=== PATIENT | female | born 1950 | race Caucasian/White ===

== ENCOUNTER 2020-09-26 10:17 | Outpatient (NON) | payer MEDICARE, SELFPAY ==
[2020-09-27 06:46] LABS: SARS-CoV-2 RNA PCR Negative
== END 2020-09-26 10:18 ==
LOC: ANHCOVIDDT 10:19
PROVIDERS: PCP Family Medicine; Visit Provider Family Medicine
DX: Z20.828 Contact with and (suspected) exposure to other viral communicable diseases (principal)
CPT/HCPCS: 87635; C9803; U0003

== ENCOUNTER 2021-01-16 13:31 | Outpatient (CLI) | payer MEDICARE, SELFPAY ==
--- NOTE | ~2021-01-16 | CT_ITS ---
EXAMINATION: CT lung screening DATE: 01/16/2021 14:01 INDICATION: Smoker. History of tobacco dependence. TECHNIQUE: Computed tomography (CT) of the chest was performed without intravenous contrast. The dose -length product was 78.14 mGy-cm. Automated exposure control and iterative reconstruction technique w ere employed. COMPARISON: None FINDINGS: Heart size is normal. Precarinal lymph node measures 1 cm, image 44. Additional nonenlarged mediastinal lymph nodes are present, likely reactive. There is atherosclerosis. No significant pleur al or pericardial effusion. The upper abdomen is unremarkable. Moderate emphysema. There is apical pl eural thickening/scarring. There is a pleural-based subsolid 5 mm right lower lobe nodule, image 95. No endobronchial lesions. There are small 1-2 mm subpleural nodules in the left upper lobe, best seen on coronal reconstruction images. No focal airspace consolidation. No pneumothorax. No acute osseous abnormality. IMPRESSION: 1. Lung-RADS category 2: Benign appearance or behavior. Continue annual screening with noncontrast lo w-dose chest CT in 12 months. Reviewed, dictated and finalized at location A. [employer]ISER IMPRESSION: 1. Lung-RADS category 2: Benign appearance or behavior. Continue annual screeni ng with noncontrast low-dose chest CT in 12 months.
== END 2021-01-16 13:32 | disposition home or self-care (01) ==
PROVIDERS: PCP Family Medicine; Visit Provider Family Medicine
DX: Z12.2 Encounter for screening for malignant neoplasm of respiratory organs (principal); Z87.891 Personal history of nicotine dependence
CPT/HCPCS: 71271

== ENCOUNTER 2021-03-02 09:03 | Outpatient (CLI) | payer MEDICARE, SELFPAY ==
--- NOTE | 2021-03-02 16:03 | WPDPFTINT ---
PFT Procedure Performed PFT Procedure Performed Spirometry with Pre/Post Bronchodilator Plethysmography (Lung Vol) Diffusing Cap (DLCO) Flow Vol Loop PFT Interpretation This is a pulmonary function test with pre and post-bronchodilator spirometry, plethysmography and diffusing capacity. The test was performed and results interpreted in accordance with the 2019 and 2005 ATS/ERS Task Force guidelines respectively using the Global Lung Function Initiative-2012 reference equations. Patient demonstrated good effort and cooperation. Reproducibility criteria were met. The quality of the pre bronchodilator spirometry maneuver was Grade A and post bronchodilator spirometry maneuver was Grade A. Findings: Spirometry: There is decreased maximal expiratory airflow at low lung volumes with concave expiratory flow tracing. The contour the inspiratory flow tracing is normal. The pre bronchodilator FVC is 3.62 L, 121% predicted. The pre bronchodilator FEV1 is 2.27 L, 98% predicted. The FEV1: FVC ratio is 63%. The post bronchodilator FVC is 3.58 L, representing a 1% decrease. The post bronchodilator FEV1 is 2.24 L, representing a 1% decrease. Plethysmography: The total lung capacity is 5.23 L, 97% predicted. The functional residual capacity is 2.47 L, 80% predicted. The residual volume is 1.61 L, 69% predicted. Diffusing capacity: The absolute diffusion capacity is 12.8, 61% predicted. The diffusing capacity corrected for alveolar volume is 2.85, 68% predicted. Impression: There is a mild obstructive abnormality with a normal FEV1 and wihtout significant improvement after inhaling a single dose of albuterol. T The lung volumes are normal. The absolute diffusing capacity is mildly decreased and normalizes when corrected for alveolar volume. There are no prior studies for comparison
== END 2021-03-02 09:04 | disposition home or self-care (01) ==
PROVIDERS: PCP Family Medicine; Visit Provider Family Medicine
DX: J44.9 Chronic obstructive pulmonary disease, unspecified (principal); R94.2 Abnormal results of pulmonary function studies
CPT/HCPCS: 94060; 94726; 94729

== ENCOUNTER 2021-05-02 10:48 | Outpatient (CLI) | payer MEDICARE, SELFPAY ==
--- NOTE | ~2021-05-02 | MR_ITS ---
EXAMINATION: MR cervical spine wo con DATE: 05/02/2021 12:08 INDICATION: Cervical radiculopathy. TECHNIQUE: Magnetic resonance imaging (MRI) of the cervical spine was performed without intravenous c ontrast. Sequences included sagittal T2-weighted FSE, sagittal STIR FSE, sagittal T1-weighted FSE, ax ial MERGE, and axial T2-weighted FSE. COMPARISON: Cervical spine MRI 09/12/2019 FINDINGS: Bone alignment is normal. Vertebral body heights are normal. There is mildly decreased disc height at C3-C4 and severely decreased disc height at C5-C6 and C6-C7. The spinal cord signal intens ity is normal. The following disc levels are specifically discussed: C2-C3: There is a central protrusion. There is no uncovertebral joint osteoarthritis. There is no fac et joint osteoarthritis. There is no neural foraminal stenosis. There is no central canal stenosis. C3-C4: The disc is bulging. There is mild bilateral uncovertebral joint osteoarthritis. There is mode rate bilateral facet joint osteoarthritis. There is mild bilateral neural foraminal stenosis. There i s mild central canal stenosis. C4-C5: The disc is bulging. There is mild left uncovertebral joint osteoarthritis. There is mild righ t and severe left facet joint osteoarthritis. There is mild left neural foraminal stenosis. There is no central canal stenosis. C5-C6: The disc is bulging. There is severe bilateral uncovertebral joint osteoarthritis. There is no facet joint osteoarthritis. There is moderate right and mild left neural foraminal stenosis. There i s mild central canal stenosis. C6-C7: The disc is bulging. There is severe bilateral uncovertebral joint osteoarthritis. There is mi ld bilateral facet joint osteoarthritis. There is mild bilateral neural foraminal stenosis. There is mild central canal stenosis. C7-T1: There is a central protrusion. There is no uncovertebral joint osteoarthritis. There is severe bilateral facet joint osteoarthritis. There is mild bilateral neural foraminal stenosis. There is mi ld central canal stenosis. IMPRESSION: 1. Severe cervical spondylosis, stable from 09/12/2019. Reviewed, dictated and finalized at location A.
== END 2021-05-02 10:49 | disposition home or self-care (01) ==
PROVIDERS: PCP Family Medicine; Visit Provider Anesthesiology
DX: M47.23 Other spondylosis with radiculopathy, cervicothoracic region (principal); M48.03 Spinal stenosis, cervicothoracic region
CPT/HCPCS: 72141

== ENCOUNTER 2021-07-10 08:39 | Outpatient (CLI) | payer MEDICARE, SELFPAY ==
[2021-07-10 09:14] LABS: Hematocrit 37.8 % (37.0-47.0); Hemoglobin 12.4 g/dL (12.0-15.0); Mean Corpuscular HGB Conc 32.8 g/dl (32-36); Mean Corpuscular Hemoglobin 31.1 pg (26-34); Mean Corpuscular Volume 94.7 fl (80-100); Mean Platelet Volume 8.7 fl (7.4-10.4); Platelet Count Result 293 k/mm3 (150-375); Red Blood Count 3.99 M/mm3 (4.2-5.4); Red Cell Distribution Width 13.1 % (11.5-14.5); White Blood Count 8.7 K/mm3 (4.5-10.0)
[2021-07-10 09:28] LABS: Add Urine Microscopic? YES; Appearance Urine Clear (Clear); Bilirubin Urine Negative (Negative); Blood Urine Negative (Negative); Color Urine Yellow (Yellow); Glucose Urine UA Negative (Negative); Ketones Urine Negative (Negative); Leukocyte Esterase Ur 3+ LEU/UL (NEGATIVE); Mucus Urine Rare /lpf; Nitrate Urine Negative (Negative); Protein Urine Negative (Negative); Specific Grav Ur 1.014 (1.001-1.035); Squamous Epithelial Cell Urine Few /hpf (Few); Transitional Epi Cells Urine Rare /hpf (None Seen); Urobilinogen Urine Negative mg/dL (<2.0); WBC Urine 16-20 /hpf (0-3)
[2021-07-10 09:36] LABS: Alanine Aminotransferase 14 U/L (4-35); Albumin Level 4.1 g/dL (3.5-5.1); Alkaline Phosphatase 67 U/L (38-126); Anion Gap 6 mmol/L (8-16); Aspartate Amino Transferase 22 U/L (14-36); Bilirubin,Total 0.2 mg/dL (0.2-1.3); Blood Urea Nitrogen 14 mg/dL (7-17); Calcium 9.1 mg/dL (8.4-10.2); Carbon Dioxide 28 mmol/L (22-30); Chloride 105 mmol/L (98-107); Cholesterol 207 mg/dL (0-200); Estimated Glomerular Filt Rate > 60; Glucose 105 mg/dL (65-110); HDL Direct 86 mg/dL; Potassium 3.9 mmol/L (3.4-5.0); Sodium 139 mmol/L (137-145); Triglycerides 86 mg/dL (<150)
[2021-07-10 09:47] LABS: LDL Cholesterol Direct 82 mg/dL
== END 2021-07-10 08:40 | disposition home or self-care (01) ==
PROVIDERS: PCP Family Medicine; Visit Provider Family Medicine
DX: E78.5 Hyperlipidemia, unspecified (principal); I10 Essential (primary) hypertension
CPT/HCPCS: 36415; 80053; 80061; 81001; 84443; 85027

== ENCOUNTER → 2021-07-24 01:47 | Outpatient (CLI) | payer MEDICARE, SELFPAY ==
[2021-07-24 19:38] LABS: SARS-CoV-2 RNA PCR Negative
== END ==
PROVIDERS: PCP Family Medicine; Visit Provider Family Medicine
DX: Z20.822 Contact with and (suspected) exposure to COVID-19 (principal)
CPT/HCPCS: C9803; U0003; U0005

== ENCOUNTER 2021-08-13 16:23 | Emergency (ER) | payer MEDICARE, SELFPAY ==
--- NOTE | ~2021-08-13 | XR_ITS ---
EXAMINATION: XR knee RT min 4V EXAM DATE: 08/13/2021 17:41 INDICATION: Right knee pain, swelling, recently had fluid removed. TECHNIQUE: Right knee frontal, crosstable lateral, orthogonal oblique projections for interpretation . There is no prior study for comparison. FINDINGS: No evidence osteochondral defect or joint body in the right knee joint. There are no acut e fractures or dislocations identified. There is no subcutaneous gas. There is small joint effusion . There are no radiopaque foreign bodies. IMPRESSION: Small right knee joint effusion. Reviewed, dictated and finalized at location G.
--- NOTE | ~2021-08-13 | US_ITS ---
EXAMINATION: US venous doppler LE RT DATE: 08/13/2021 17:30 INDICATION: Right lower limb pain. TECHNIQUE: Grayscale ultrasound images without and with compression and Doppler ultrasound images of the right lower extremity veins were obtained. COMPARISON: None. FINDINGS: The visualized portions of right common femoral vein, profunda (deep) femoral vein, femoral vein, pop liteal vein, peroneal veins, posterior tibial veins, and greater saphenous vein outflow are patent. IMPRESSION: 1. No deep venous thrombosis. Reviewed, dictated and finalized at location A.
[2021-08-13 16:35] VITALS: BP 175/79; PULSE 75; RESP 18; TEMP 36.7; O2SAT 97
--- NOTE | 2021-08-13 16:58 | ED.EXTPRO ---
HPI - Extremity Problem General Chief complaint: Extremity Problem,Nontraumatic Stated complaint: knee injury Time Seen by Provider: 08/13/21 16:49 Source: patient Mode of arrival: ambulatory Limitations: no limitations History of Present Illness HPI Narrative: This is a 71-year-old female that presents to the emergency department for right lower extremity swelling since yesterday. Reports 2 days ago she had an a steroid injection in the right knee with Dr. Steve. Reports yesterday she noted that her swelling came back in the knee. Also reports swelling going down into the calf and ankle. Denies fever, decreased range of motion, erythema, or warmth. Related Data Home Medications Medication Instructions Recorded Confirmed tizanidine 2 mg tablet 2 mg PO TID PRN 12/04/19 08/11/21 pregabalin 25 mg capsule 25 mg PO BID 07/14/21 08/11/21 methylprednisolone 4 mg tablets in See Rx Instructions PO .COMPLEX ea 08/11/21 08/11/21 a dose pack Allergies Allergy/AdvReac Type Severity Reaction Status Date / Time ciprofloxacin [From Cipro] Allergy Mild rash Verified 08/13/21 16:38 Review of Systems Review of Systems: CONSTITUTIONAL: Denies fever SKIN: Denies rash MUSCULOSKELETAL: Reports joint pain, and myalgia. NEUROLOGIC: Denies numbness All systems reviewed & are unremarkable except as noted in HPI and below PMFSH Past Medical History Medical History Anxiety COPD (chronic obstructive pulmonary disease) Depression GERD (gastroesophageal reflux disease) HLD (hyperlipidemia) HTN (hypertension), benign Insomnia Smoking Spinal stenosis Surgical History Surgical History History of sinus surgery twice Family History Family History Father Cancer of unknown origin Heart disease Hypertension Mother Hypertension Alzheimer's dementia Social History Social History Smoking packs per day: 0.5 Smoking cigarettes per day: 10.0 Years smoked: 50 Smoking pack-years: 25.00 Smoking status: Current every day smoker Tobacco type: cigarettes Second hand tobacco smoke exposure: No Alcohol intake: current Alcohol use details: socially Substance use: never Substance use type: does not use Gender identity (if verbalized by the patient): Female Exam Narrative: GENERAL: Well-appearing, well-nourished, and in no acute distress. HEAD: Normocephalic, atraumatic. EYES: EOMI. CHEST: Airway patent HEART: Regular rate EXTREMITIES: Normal range of motion. No erythema or warmth. Mild edema about the right knee anteriorly. Mild edema of the right calf and ankle. Normal DP pulses. Normal sensation SKIN: Warm, dry, no rash. NEURO: No focal deficits. Alert and oriented x3. PSYCH: Normal mood and affect Course Vital Signs Vital signs: Vital Signs Temperature 98.0 F 08/13/21 16:35 Pulse Rate 75 08/13/21 16:35 Respiratory Rate 18 08/13/21 16:35 Blood Pressure 175/79 H 08/13/21 16:35 Pulse Oximetry 97 08/13/21 16:35 Temperature 98.0 F 08/13/21 16:35 Pulse Rate 75 08/13/21 16:35 Respiratory Rate 18 08/13/21 16:35 Blood Pressure 175/79 H 08/13/21 16:35 Pulse Oximetry 97 08/13/21 16:35 MDM - Extremity (Nontraumatic) MDM Narrative Medical decision making narrative: Patient presents to the emergency department for right lower extremity edema and pain. Recently had a joint injection in the right knee [address] Steve. She is afebrile and nontoxic-appearing. No erythema or warmth of the knee. Normal range of motion in the knee. Mild swelling noted about the right calf and ankle. Right lower extremity venous Doppler is without evidence of DVT. Right knee x-ray shows a small joint effusion. No concerning changes on laboratory evaluation. Patient wa
[2021-08-13 17:20] LABS: Basophils Percent Auto 0.1 % (0.2-1.2); Hematocrit 34.5 % (37.0-47.0); Hemoglobin 11.5 g/dL (12.0-15.0); Immature Granulocyte Absolute 0.08 K/mm3 (0.00-0.031); Immature Granulocyte Percent A 0.7 % (0-0.5); Lymphocytes Absolute Auto 1.48 K/mm3 (0.9-3.2); Lymphocytes Percent Auto 12.7 % (18.3-44.2); Mean Corpuscular HGB Conc 33.3 g/dl (32-36); Mean Corpuscular Hemoglobin 31.4 pg (26-34); Mean Corpuscular Volume 94.3 fl (80-100); Mean Platelet Volume 8.6 fl (7.4-10.4); Monocytes Absolute Auto 0.7 K/mm3 (0.1-0.6); Neutrophils Absolute Auto 9.4 K/mm3 (1.3-6.7); Neutrophils Percent Auto 80.5 % (45.5-73.1); Platelet Count Result 243 k/mm3 (150-375); Red Blood Count 3.66 M/mm3 (4.2-5.4); Red Cell Distribution Width 13.8 % (11.5-14.5); White Blood Count 11.6 K/mm3 (4.5-10.0)
[2021-08-13 17:30] LABS: INR 0.8; Prothrombin Time 11.4 Seconds (11.1-14.7)
[2021-08-13 17:31] LABS: Partial Thromboplastin Time 23.4 SECONDS (22.3-36.8)
[2021-08-13 17:48] LABS: Anion Gap 5 mmol/L (8-16); Blood Urea Nitrogen 21 mg/dL (7-17); CRP < 0.5 mg/dL (<1.0); Calcium 8.9 mg/dL (8.4-10.2); Carbon Dioxide 24 mmol/L (22-30); Chloride 104 mmol/L (98-107); Estimated CRCL calculation 55 ml/min; Estimated Glomerular Filt Rate > 60; Glucose 104 mg/dL (65-110); Potassium 4.2 mmol/L (3.4-5.0); Sodium 133 mmol/L (137-145)
[2021-08-13 17:52] LABS: Erythrocyte Sedimentation Rate 33 mm/hr (0-20)
== END 2021-08-13 22:24 | disposition home or self-care (01) ==
PROVIDERS: Physician Assistant; Emergency Provider Emergency Medicine; PCP Family Medicine
DX: R60.0 Localized edema (principal); J44.9 Chronic obstructive pulmonary disease, unspecified; E78.5 Hyperlipidemia, unspecified; I10 Essential (primary) hypertension; K21.9 Gastro-esophageal reflux disease without esophagitis; F41.9 Anxiety disorder, unspecified; F32.9 Major depressive disorder, single episode, unspecified; F17.210 Nicotine dependence, cigarettes, uncomplicated
CPT/HCPCS: 36415; 73564; 80048; 85025; 85610; 85652; 85730; 86140; 93971; 99284

== ENCOUNTER 2021-08-19 06:40 | Outpatient (CLI) | payer MEDICARE, SELFPAY ==
--- NOTE | ~2021-08-19 | MR_ITS ---
EXAMINATION: MR knee RT wo con DATE: 08/19/2021 07:27 INDICATION: Right knee pain and swelling TECHNIQUE: Magnetic resonance imaging (MRI) of the right knee was performed without intravenous contr ast. Sequences included coronal PD-weighted FSE, coronal PD-weighted FS FSE, sagittal T2-weighted FS E, sagittal PD-weighted FS FSE and axial PD weighted fat saturated FSE. COMPARISON: Right knee radiographs dated 08/13/2021 FINDINGS: Medial compartment: Longitudinal horizontal tear of the body and posterior horn of the medial meniscus. Partial-thickness cartilage loss along the central weightbearing medial femoral condyle with smooth chondral surface. Deep chondral fissuring along the medial margin of the central to posterior weightbearing lateral fem oral condyle with small region of underlying cortical irregularity with mild subarticular edema. Lateral compartment: Longitudinal horizontal tear extending to the intra-articular surface of the posterior horn . Crosses the free edge of the body and extending to the superior to the surface at the junction of the anteri or horn and body. Partial-thickness cartilage loss with deep fissuring and mild underlying subarticul ar cystic change along the posterior medial aspect of the lateral tibial plateau. Partial thickness c artilage loss with smooth chondral surface at the central weightbearing lateral femoral condyle. Patellofemoral compartment: Deep chondral ulceration with mild subarticular cystic changes at the cephalad have of the patellar a pical ridge and medial patellar facet. Shallow chondral fissuring at the lateral aspect of the latera l facet. Deep chondral fissuring with minimal subarticular edema at the inferior aspect of the medial trochlea. Ligaments and tendons: Anterior cruciate ligament is normal. There is increased signal extending proximally to distally sea g the central aspect of the posterior cruciate ligament consistent with at least partial tear. No adj acent soft tissue edema in this is likely chronic. The fibular collateral ligament complex is normal. There is thickening and mild increased signal of the proximal medial collateral ligament. There is m ild edema along both the deep and superficial margin of the medial collateral ligament. Findings coul d represent either an acute low to moderate grade sprain or scarring related to chronic sprain with c oincidental reactive edema related to the underlying meniscal tear. Small enthesophytes at the patell ar insertion of the otherwise normal distal quadriceps tendon. Mild proximal patellar tendinopathy. T he visualized medial and lateral hamstring tendons as well as the iliotibial band are normal. Fluid: Small right knee joint effusion at the suprapatellar pouch. No loose osteochondral bodies identified. Osseous/other: Bone alignment is normal. Small low signal intensity bone island at the medial femoral condyle. Anitha l marrow signal separate previous noted mild degenerative subarticular changes. No fracture or pathol ogic marrow replacing process. IMPRESSION: 1. Medial and lateral meniscal tears. 2. Mild tricompartmental osteoarthritis with regions of high-grade chondromalacia in all 3 compartmen ts. 3. Likely chronic partial tear of the posterior cruciate ligament and age-indeterminate low to modera te grade sprain of the medial collateral ligament. 4. Likely reactive small right knee joint effusion. 5. Mild proximal patellar tendinopathy and small enthesophytes at the patellar insertion of the other aden normal quadriceps tendon. Reviewed, dictated and finalized at location A. IMPRESSION: 1. Medial and lateral meniscal tears. 2. Mild tricompartmental osteoarthritis with regions of high-grade chondromalac ia in all 3 compartments
== END 2021-08-19 06:41 | disposition home or self-care (01) ==
LOC: ANHIMG 06:41
PROVIDERS: PCP Family Medicine; Visit Provider Orthopaedic Surgery
DX: S83.281A Other tear of lateral meniscus, current injury, right knee, initial encounter (principal); S83.241A Other tear of medial meniscus, current injury, right knee, initial encounter; S83.501A Sprain of unspecified cruciate ligament of right knee, initial encounter
CPT/HCPCS: 73721

== ENCOUNTER 2022-03-07 08:25 | Outpatient (CLI) | payer MEDICARE, SELFPAY ==
--- NOTE | ~2022-03-07 | XR_ITS ---
EXAMINATION: XR lumbar spine 6V w bending DATE: 03/07/2022 09:10 INDICATION: Lumbar radiculopathy TECHNIQUE: Anteroposterior, lateral in neutral, flexion and extension, and bilateral oblique views of the lumbar spine, and cone-down lateral view of the lumbosacral junction were obtained. COMPARISON: 09/12/2019 FINDINGS: There is stable grade 1/2 anterolisthesis of L4 on L5. Again noted are approximately 2 mm o f additional anterolisthesis with flexion and 2 mm of reduction and anterolisthesis with extension. T here is unchanged severe loss of intervertebral disc space height at L4-5 and moderate loss of interv ertebral disc space height at L5-S1. The vertebral body heights are normal. There is no fracture. The re is moderate facet osteoarthritis of the lower lumbar spine. Calcified atherosclerosis is noted. IMPRESSION: 1. Unchanged grade 1/2 anterolisthesis of L4 on L5 with mild laxity in flexion and extension. Stable moderate lower lumbar spondylosis. Reviewed, dictated and finalized at location A.
--- NOTE | ~2022-03-07 | MR_ITS ---
EXAMINATION: MR lumbar spine wo con DATE: 03/07/2022 09:28 INDICATION: Lumbar radiculopathy. Lumbar spinal stenosis. TECHNIQUE: Magnetic resonance imaging (MRI) of the lumbar spine was performed without intravenous con trast. Sequences included sagittal T2-weighted FSE, sagittal T2-weighted FS FSE, sagittal T1-weighted FSE, and axial T2-weighted FSE. COMPARISON: Lumbar spine radiographs 03/07/2022 FINDINGS: There is 4 degrees levocurvature of lumbar spine. There is 6 mm anterolisthesis of L4 on L5 . Vertebral body heights are normal. There is severely decreased disc height at L4-L5 with endplate r emodeling. There is mildly decreased disc height at L3-L4 and L5-S1. The distal spinal cord signal in tensity is normal. The conus medullaris is at T12-L1. The following disc levels are specifically disc ussed: L1-L2: The disc does not extend beyond the endplate margin. There is mild bilateral facet joint osteo arthritis. There is no neural foraminal stenosis. There is no central canal stenosis. L2-L3: The disc is mildly bulging. There is moderate bilateral facet joint osteoarthritis. There is m ild bilateral neural foraminal stenosis. There is no central canal stenosis. L3-L4: The disc is bulging. There is mild bilateral facet joint osteoarthritis. There is mild right a nd moderate left neural foraminal stenosis. There is mild central canal stenosis. L4-L5: The disc is bulging and has an annular fissure. There is severe bilateral facet joint osteoart hritis. There is moderate bilateral neural foraminal stenosis. There is severe central canal stenosis . L5-S1: The disc is bulging and has an annular fissure. There is moderate bilateral facet joint osteoa rthritis. There is mild right and moderate left neural foraminal stenosis. There is mild central ximena l stenosis. IMPRESSION: 1. Severe lumbar spondylosis. Reviewed, dictated and finalized at location B.
== END 2022-03-07 08:26 | disposition home or self-care (01) ==
PROVIDERS: PCP Family Medicine; Visit Provider Anesthesiology
DX: M54.16 Radiculopathy, lumbar region (principal); M48.062 Spinal stenosis, lumbar region with neurogenic claudication; M43.06 Spondylolysis, lumbar region
CPT/HCPCS: 72114; 72148

== ENCOUNTER 2022-03-10 14:33 | Emergency (ER) | payer MEDICARE, SELFPAY ==
--- NOTE | ~2022-03-10 | CT_ITS ---
EXAMINATION: CT brain wo con DATE: 03/10/2022 18:21 INDICATION: syncope TECHNIQUE: Computed tomography (CT) of the head was performed without intravenous contrast. The mA wa s adjusted according to patient size. Iterative reconstruction technique was employed. The dose-lengt h product was 529.67 mGy-cm. COMPARISON: None FINDINGS: No acute intracranial hemorrhage or extra-axial fluid collection. No hydrocephalus, mass, or herniation. No acute ischemic infarct. Unremarkable dural venous sinus attenuation. No acute osseous abnormality. The aerated spaces are clear. Mild atrophy and chronic white matter change. Atherosclerotic intracranial calcification. Old left ba morris ganglia lacune. IMPRESSION: No acute intracranial process. Reviewed, dictated and finalized at location K.
--- NOTE | 2022-03-10 14:47 | ECG_ITS ---
Measurements Intervals [place] Rate: 57 P: 55 MI: 157 QRS: 11 QRSD: 89 T: 46 QT: 440 QTc: 431 Interpretive Statements SINUS BRADYCARDIA POSSIBLE LEFT ATRIAL ENLARGEMENT VOLTAGE CRITERIA FOR LVH CANNOT RULE OUT SEPTAL INFARCT, AGE INDETERMINATE BASELINE ARTIFACT- I, III, AVL ABNORMAL ECG Electronically Signed On 03-10-2022 15:20:05 CDT by Jeff Gregg D.O.
[2022-03-10 15:00] VITALS: BP 103/60; PULSE 62; RESP 18; TEMP 36.1; O2SAT 95
[2022-03-10 15:22] LABS: Basophils Absolute Auto 0.1 K/mm3 (0.0-0.1); Basophils Percent Auto 0.4 % (0.2-1.2); Eosinophils Percent Auto 0.3 % (0-4.4); Hemoglobin 13.2 g/dL (12.0-15.0); Immature Granulocyte Absolute 0.08 K/mm3 (0.00-0.031); Immature Granulocyte Percent A 0.7 % (0-0.5); Lymphocytes Absolute Auto 4.62 K/mm3 (0.9-3.2); Lymphocytes Percent Auto 40.8 % (18.3-44.2); Mean Corpuscular Hemoglobin 29.8 pg (26-34); Mean Corpuscular Volume 90.3 fl (80-100); Mean Platelet Volume 8.7 fl (7.4-10.4); Monocytes Absolute Auto 0.9 K/mm3 (0.1-0.6); Monocytes Percent Auto 7.5 % (2.6-8.5); Neutrophils Absolute Auto 5.7 K/mm3 (1.3-6.7); Neutrophils Percent Auto 50.3 % (45.5-73.1); Platelet Count Result 303 k/mm3 (150-375); Red Blood Count 4.43 M/mm3 (4.2-5.4); Red Cell Distribution Width 14.3 % (11.5-14.5); White Blood Count 11.3 K/mm3 (4.5-10.0)
[2022-03-10 15:34] LABS: Alanine Aminotransferase 14 U/L (4-35); Albumin Level 4.1 g/dL (3.5-5.1); Alkaline Phosphatase 62 U/L (38-126); Anion Gap 7 mmol/L (8-16); Aspartate Amino Transferase 20 U/L (14-36); Bilirubin,Total 0.3 mg/dL (0.2-1.3); Blood Urea Nitrogen 23 mg/dL (7-17); Calcium 9.1 mg/dL (8.4-10.2); Carbon Dioxide 25 mmol/L (22-30); Chloride 100 mmol/L (98-107); Estimated CRCL calculation 36 ml/min; Estimated Glomerular Filt Rate 49; Glucose 123 mg/dL (65-110); Potassium 3.2 mmol/L (3.4-5.0); Sodium 132 mmol/L (137-145)
[2022-03-10 16:37] VITALS: BP 115/62; PULSE 61; RESP 15; O2SAT 95
[2022-03-10 16:50] VITALS: PULSE 62
[2022-03-10 17:38] VITALS: BP 112/70; PULSE 71; RESP 15; O2SAT 94
[2022-03-10 18:08] LABS: Appearance Urine Clear (Clear); Bilirubin Urine Negative (Negative); Blood Urine Negative (Negative); Color Urine Yellow (Yellow); Glucose Urine UA Negative (Negative); Ketones Urine Trace mg/dL (Negative); Leukocyte Esterase Ur Trace LEU/UL (Negative); Nitrate Urine Negative (Negative); Protein Urine Negative (Negative); Specific Grav Ur 1.015 (1.001-1.035); Urobilinogen Urine 0.2 mg/dL (<2.0); pH Urine 5.5 (5.0-9.0)
--- NOTE | 2022-03-10 18:14 | PC.NURSE ---
Pt to CT scan via stretcher at this time.
[2022-03-10 18:19] LABS: Mucus Urine Rare /lpf; RBC Urine 0-2 /hpf (0-2); Squamous Epithelial Cell Urine Rare /hpf (Few)
[2022-03-10 18:20] LABS: Add Urine Microscopic? YES
[2022-03-10 18:38] LABS: Troponin I < 0.012 ng/mL (0.000-0.034)
[2022-03-10 18:48] LABS: D Dimer 0.39 ug/mL (<0.48)
--- NOTE | 2022-03-10 20:06 | ED.SYNCOPE ---
HPI - Syncope General Chief Complaint: Syncope Stated Complaint: syncope/abd pain Time Seen by Provider: 03/10/22 15:57 Source: patient Mode of arrival: EMS Limitations: no limitations History of Present Illness HPI narrative: 71-year-old here with complaints of having a syncopal episode. Patient states that she was sitting with her friends and playing cards passed out , patient states that she felt extremely dizzy and diaphoretic. she denied any chest pain, shortness of breath or palpitation prior to the event. She denies any headache she states that she cannot remember what happened. No history of seizure disorder or syncopal episodes. MD complaint: loss of consciousness Related Data Home Medications Medication Instructions Recorded Confirmed tizanidine 2 mg tablet 2 mg PO TID PRN 12/04/19 02/01/22 pregabalin 25 mg capsule 25 mg PO BID 07/14/21 02/01/22 Allergies Allergy/AdvReac Type Severity Reaction Status Date / Time ciprofloxacin [From Cipro] Allergy Mild rash Verified 02/01/22 10:55 Review of Systems Review of Systems: All systems reviewed & are unremarkable except as noted in HPI and below Constitutional: Constitutional: Reports no additional constitutional complaints Eyes: Eyes: Reports no additional eye complaints ENT: Reports system reviewed and no additional complaints, except as documented Cardiovascular: Cardiovascular: Reports no additional cardiovascular complaints Respiratory: Respiratory: Reports no additional respiratory complaints Genitourinary: Genitourinary: Reports no additional female genitourinary complaints Musculoskeletal: Musculoskeletal: Reports no additional musculoskeletal complaints Integumentary/Breasts: Skin/Breast: Reports system reviewed and no additional complaints, except as docu Neurologic: Reports dizziness Psychiatric: Psychiatric: Reports no additional psychiatric complaints [facility] Past Medical History Medical History Anxiety COPD (chronic obstructive pulmonary disease) Depression GERD (gastroesophageal reflux disease) HLD (hyperlipidemia) HTN (hypertension), benign Insomnia Smoking Spinal stenosis Tear of medial meniscus of right knee Surgical History Surgical History History of sinus surgery twice Family History Family History Father Cancer of unknown origin Heart disease Hypertension Mother Hypertension Alzheimer's dementia Social History Social History (Updated 02/01/22 @ 10:55 by Kathie Castle Smoking packs per day: 0.5 Smoking cigarettes per day: 10.0 Years smoked: 50 Smoking pack-years: 25.00 Smoking status: Current every day smoker Tobacco type: cigarettes Second hand tobacco smoke exposure: No Alcohol intake: current Alcohol use details: socially Substance use: never Substance use type: does not use Gender identity (if verbalized by the patient): Female Exam Narrative: GENERAL: Well-appearing, well-nourished, and in no acute distress. HEAD: Normocephalic, atraumatic. EYES: PERRLA and EOMI. ENT: Nares clear, no rhinorrhea or epistaxis. Mucous membranes moist. No facial droop NECK: Supple. CHEST: Clear to auscultation. No respiratory distress. HEART: Regular rate and rhythm. No murmur heard. Normal peripheral pulses. ABDOMEN: Soft, nontender, nondistended, normal active bowel sounds. EXTREMITIES: Normal range of motion. No edema. SKIN: Warm, dry, no rash. NEURO: No focal deficits. Alert and oriented x3. PSYCH: Normal mood and affect. Course Course Emergency Course: Patient remained asymptomatic here denied any pain informed her about her lab work, CT and EKG findings. I discussed with Dr. Reese recommended her to call the office tomorrow for Holter monitor. Patient's daughter is at bedside understood the instructions. Vital
[2022-03-10 20:23] VITALS: BP 117/65; PULSE 70; RESP 18; O2SAT 97
== END 2022-03-10 20:24 | disposition home or self-care (01) ==
PROVIDERS: Emergency Medicine; Emergency Provider Family Medicine; PCP Family Medicine
DX: R55 Syncope and collapse (principal); K21.9 Gastro-esophageal reflux disease without esophagitis; E78.5 Hyperlipidemia, unspecified; I10 Essential (primary) hypertension; J44.9 Chronic obstructive pulmonary disease, unspecified; F17.210 Nicotine dependence, cigarettes, uncomplicated; F41.9 Anxiety disorder, unspecified; F32.A Depression, unspecified
CPT/HCPCS: 36415; 70450; 80053; 81001; 84484; 85025; 85380; 93005; 99284

== ENCOUNTER 2023-02-18 11:41 | Emergency (ER) | payer MEDICARE, SELFPAY ==
[2023-02-18 11:52] VITALS: BP 126/85; PULSE 77; RESP 18; TEMP 36.1; O2SAT 99
--- NOTE | 2023-02-18 12:19 | ED.URI ---
HPI - URI/Sore Throat General Chief Complaint: Upper Respiratory Infection Stated Complaint: uri Time Seen by Provider: 02/18/23 11:55 Source: patient Mode of arrival: ambulatory Limitations: no limitations History of Present Illness HPI Narrative: Patient presents today with a 3 day history of nasal congestion and pressure, postnasal drip, right ear pain and pressure, headache. Denies cough, fever, shortness of breath, sick contacts. History of COPD and seasonal allergies. She has been taking Mucinex DM without much relief. Related Data Home Medications Medication Instructions Recorded Confirmed tizanidine 2 mg tablet 2 mg PO TID 12/04/19 02/18/23 pregabalin 25 mg capsule (Lyrica) 25 mg PO BID 07/14/21 02/18/23 amlodipine 5 mg tablet 5 mg PO DAILY 09/07/22 02/18/23 Allergies Allergy/AdvReac Type Severity Reaction Status Date / Time cefuroxime [From Ceftin] Allergy Mild Rash Verified 02/18/23 11:46 ciprofloxacin [From Cipro] Allergy Mild rash Verified 02/18/23 11:46 Review of Systems Review of Systems: CONSTITUTIONAL: Denies body aches, fever, chills, or sweats. EYES: Denies visual changes, redness, or discharge. ENT: Denies rhinorrhea, sore throat. + sinus congestion, postnasal drip, right ear pain CARDIOVASCULAR: Denies chest pain, palpitations, or edema. RESPIRATORY: Denies cough or dyspnea. GASTROINTESTINAL: Denies abdominal pain, nausea, vomiting, or diarrhea. GENITOURINARY: Denies dysuria or hematuria. SKIN: Denies rash, itching, or wounds. MUSCULOSKELETAL: Denies back pain, joint pain, or myalgia. NEUROLOGIC: Denies numbness, tingling, or weakness.+ headache PSYCH: Denies depression or anxiety. 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 Depression Fibromyalgia GERD (gastroesophageal reflux disease) HLD (hyperlipidemia) HTN (hypertension), benign Insomnia Osteoarthritis Smoking Spinal stenosis Tear of medial meniscus of right knee Vitamin B12 deficiency Surgical History Surgical History History of breast biopsy (~2002) right breast biopsy--benign History of dilation and curettage 08/24/12 hscope d&c--PMB--atrophic endometrium, stenotic cervix 1970 d&c--irregular bleeding History of nasal septoplasty (~1969) History of sinus surgery (03/07/09) Family History Family History Father Heart disease Hypertension Lung cancer Mother Hypertension Alzheimer's dementia Malignant neoplasm of uterus Sibling Breast cancer daughter Social History Social History Smoking packs per day: 0.5 Smoking cigarettes per day: 10.0 Years smoked: 50 Smoking pack-years: 25.00 Smoking status: Current every day smoker Tobacco type: cigarettes Second hand tobacco smoke exposure: No Alcohol intake: current Alcohol use details: socially Substance use: never Substance use type: does not use Living arrangements: with family Occupation/Education: retired Gender identity (if verbalized by the patient): Female Comments At time of signature, I have reviewed and agree with nursing past medical, surgical, social and family history unless otherwise noted. Please see nursing chart for further information. There is no relevant family history pertinent to the presenting complaint Exam Narrative: GENERAL: Well-appearing, well-nourished, and in no acute distress. HEAD: Normocephalic, atraumatic. EYES: EOMI. No redness or drainage. Conjunctivae normal. ENT: Mucous membranes pink and moist. Nares mildly congested. No rhinorrhea. TMs normal bilaterally. Mild righ
== END 2023-02-18 12:28 | disposition home or self-care (01) ==
PROVIDERS: Emergency Provider Nurse Practitioner; PCP Internal Medicine
DX: J30.2 Other seasonal allergic rhinitis (principal); H65.111 Acute and subacute allergic otitis media (mucoid) (sanguinous) (serous), right ear; F17.210 Nicotine dependence, cigarettes, uncomplicated; J44.9 Chronic obstructive pulmonary disease, unspecified; M79.7 Fibromyalgia; K21.9 Gastro-esophageal reflux disease without esophagitis; E78.5 Hyperlipidemia, unspecified; I10 Essential (primary) hypertension; M48.00 Spinal stenosis, site unspecified; M17.0 Bilateral primary osteoarthritis of knee; F41.9 Anxiety disorder, unspecified; F32.A Depression, unspecified
CPT/HCPCS: 99213; G0463

== ENCOUNTER 2025-01-21 11:24 | Emergency (ER) | payer MEDICARE, SELFPAY ==
--- NOTE | 2025-01-21 11:27 | ED_ITS ---
HPI - URI/Sore Throat General Chief Complaint: Upper Respiratory Infection Stated Complaint: cough,sinus issue Time Seen by Provider: 01/21/25 11:26 Source: patient Mode of arrival: ambulatory Limitations: no limitations History of Present Illness HPI Narrative: Patient is a 74-year-old female who presents with 1 week of cough, congestion, sinus pressure that is not improving. Denies any fever, chills, nausea, v omiting, diarrhea, shortness of breath. Patient is active smoker. Has tried [id number] medicine with no relief. Related Data Home Medications ?Medication ?Instructions ?Recorded ?Confirmed ?Last Taken ?Type tizanidine 2 mg tablet 2 mg PO TID 12/04/19 02/18/23 Unknown History pregabalin 25 mg capsule (Lyrica) 25 mg PO BID 07/14/21 02/18/23 Unknown History amlodipine 5 mg tablet 5 mg PO DAILY 09/07/22 02/18/23 Unknown History Allergies Allergy/AdvReac Type Severity Reaction Status Date / Time cefuroxime (From Ceftin) Allergy Mild Rash Verified 02/18/23 11:46 ciprofloxacin (From Cipro) Allergy Mild rash Verified 02/18/23 11:46 Review of Systems Review of Systems: All systems reviewed & are unremarkable except as noted in HPI and below Constitutional: Constitutional: Denies chills, Denies fatigue, Denies fever(s), Denies headache(s), Denies malaise and Denies weakness Eyes: Eyes: Denies blurry vision, Denies itchy eyes and Denies loss of vision ENT: Denies otalgia, Denies headache(s), Reports nasal congestion, Denies sinus pain and Denies sore throat Cardiovascular: Cardiovascular: Denies chest pain, Denies irregular heart rhythm and Denies dyspnea Respiratory: Respiratory: Reports cough and Denies dyspnea Gastrointestinal: Gastrointestinal: Denies abdominal pain, Denies diarrhea, Denies nausea and Denies vomiting Musculoskeletal: Musculoskeletal: Denies back pain, Denies myalgias and Denies arthralgias Integumentary/Breasts: Skin/Breast: Denies pruritus and Denies rash Neurologic: Denies headache(s), Denies loss of vision and Denies weakness Psychiatric: Psychiatric: Reports no additional psychiatric complaints Endocrine: Endocrine: Denies fatigue Allergic/Immunologic: Allergic/Immunologic: Denies itchy eyes PMFSH Past Medical History Medical History Degenerative arthritis of knee, bilateral 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, 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 Fibromyalgia Osteoarthritis Vitamin B12 deficiency Tear of medial meniscus of right knee Smoking Insomnia Anxiety Depression GERD (gastroesophageal reflux disease) Spinal stenosis HLD (hyperlipidemia) HTN (hypertension), benign COPD (chronic obstructive pulmonary disease) Surgical History Surgical History H/O sinus surgery History of tonsillectomy History of breast biopsy (~2002) right breast biopsy--benign History of nasal septoplasty (~1969) History of dilation and curettage 08/24/12 hscope d&c--PMB--atrophic endometrium, stenotic cervix 1971 d&c--irregular bleeding History of sinus surgery (03/07/09) Family History Family History Father Heart disease Hypertension Lung cancer Mother Hypertension Alzheimer's dementia Malignant neoplasm of uterus Sibling Breast cancer daughter Social History Social History Smoking packs per day: 0.5 Smoking cigarettes per day: 10.0 Years smoked: 50 Smoking pack-years: 25.00 Smoking status: Current every day smoker Tobacco type: cigarettes Second hand tobacco smoke exposure: No Alcohol intake: current Alcohol use details: socially Substance use: never Substance use type: does not use Living arrangements: with family Occupation/Education: retired Gender identity (if verbalized by the patient): Female Comments At time of signature, agree with nursing past medical, surgical, social and family history. There is no relevant family history pertinent to the presenting complaint. Exam Const: General: cooperative, healthy appearing, comfortable, no acute distress and well nourished Nutritional Appearance: well nourished Orientation/consciousness: patient oriented x3 Limitations: no limitations HENMT: Head: normal to inspection, normocephalic and atraumatic Ears: hea ring grossly normal bilaterally, external ears normal, TM's normal bilaterally, EAC's normal and no periauricular adenopathy Face/Nose/Sinus: Normal external nose present, Abnormal mucous membranes and turbinates present erythematous bilateral and diffuse, normal facial exam, sinuses nontender and face symmetric Face and sinus: normal facial exam, sinuses nontender and face symmetric Mouth: Yes Normal oral and palatal mucosa present, Yes lip normal, Yes tongue normal, Yes Normal salivary glands and ducts present, Yes oropharynx normal and Yes moist mucous membranes Teeth and gingiva: dentition normal Throat: posterior oropharynx normal, tonsils normal and uvula midline Eyes: General: appearance normal, both eyes and all related structures Alignment and Position: alignment normal and position normal Periorbital: periorbital findings normal Eyelids: eyelids normal Pupils: Equal, round and reactive pupils present Neck: Neck: normal visual inspection, full ROM, no lymphadenopathy and supple Chest: Chest palpation & inspection: normal inspection of the chest and normal palpation of entire chest wall Resp: Effort & Inspection: normal respiratory effort, able to speak in complete sentences and Actively coughing actively coughing Auscultation: no crackles, no rales, rhonchi lower bilaterally (clears with cough) and no wheezes Cardio: Rate: regular rate Rhythm: regular rhythm Heart sounds: S1 normal heart sound present and S2 normal heart sound present GI: Inspection: normal to inspection Skin: General skin exam: normal color and no rashes or lesions noted Neuro: General: patient oriented x3 and moves all extremities Cranial nerves: Yes Equal, round and reactive pupils present Speech: normal speech Gait exam (Neuro): Normal gait present Extrem: General: normal to inspection, full ROM and no edema Psych: Appearance: grossly normal and well kempt Mental Status: mental status grossly normal Speech and movement: Normal speech and movement present Affect: normal affect Attitude: cooperative Thought process: Normal thought process present Course Course Emergency Course: Discharge instructions reviewed with patient, as well as provided in writing per nursing staff. The instructions also include specific and strict return/GO TO THE ER as well as f/u information. All questions have been answered, and the patient deny any further questions with discharge and discharge plan. Portions of this record may have been created with voice recognition software Level of Care: Express Care Visit Vital Signs Vital signs: Reviewed MDM - URI/Sore Throat MDM Narrative Medical decision making narrative: Pt well hydrated appearing, in no respiratory distress, hemodynamically stable. Recommend supportive care. The patient is stable at time of discharge the clinical impression was discussed and the patient was given the opportunity to ask questions, which were addressed as completely as possible given the information available at present. Anticipatory guidance and return to care precautions were discussed and the importance of primary care follow-up was stressed and encouraged. The patient voiced understanding of the plan, indications to return, and the need for follow-up. Differential diagnosis considered: Bronchitis, Farrell virus, strep pharyngitis, allergic rhinitis, upper respiratory tract infection, sinusitis, rhinosinusitis, nasopharyngitis. viral pharyngitis, otitis media, otitis externa, otitis effusion, foreign body, cerumen impaction, viral syndrome, and influenza.? Exam findings show no acute concerns or changes; patient is non-toxic appearing and is in no distress.? Patient is appropriate for outpatient treatment and follow- up.? Medical Records Attestation: I reviewed the patient's medical records. Lab Data Attestation: I reviewed the patient's lab results. Discharge Plan Discharge Clinical Impression: Acute purulent bronchitis Patient Disposition: Home, Self-Care Condition: Stable Instructions: Acute Bronchitis (ED) Additional Instructions: Take antibiotic as prescribed. Take steroids in the morning with food. Use Tessalon Perles as needed for cough. Other symptomatic treatments include: -Alternate Tylenol and Motrin per package directions for fever or pain: Tylenol 650-1000mg by mouth every 4-6 hours. Do not exceed 4000mg in 24 hours. Advil (Ibuprofen) 600 mg by mouth every 6 hours. Do not exceed 2400mg in 24 ho urs. 8 AM: Tylenol 11 AM: Ibuprofen 2 PM: Tylenol 5 PM: Ibuprofen 8 PM: Tylenol 11 PM: Ibuprofen 2 AM: Tylenol 5 AM: Ibuprofen -Antihistamine medication such as Benadryl at night and Zyrtec/Claritin/Tori during the day can help improve symptoms. -Use Flonase twice a day for 5 days then daily to help reduce the inflammation and dry up your sinuses. -You can also use Sudafed or Mucinex. Be sure to drink plenty of water with these medications at least 8 ounces with every dose and it is important to drink 8 to 10 glasses of water per day. Water is a natural decongestant -Eat and drink things that are easy to swallow, like tea or soup, or popsicles. -Oral rinses such as: Salt water gargles and/or may use topical anesthetic (eg. Chloraseptic spray) or lozenges to relieve dryness or throat pain). -Frequent hand washing or hand office professional is one of the best ways to prevent spread of infection. -Using a vaporizer or humidifier at night will also help thin secretions and help with coughing up phlegm. Call your Primary Care Doctor and make a follow-up appointment in 3 days. If your cough worsens, you develop a fever greater than 103, you develop shaking chills, a fast heartbeat, trouble breathing and/or feel you are are breathing much faster than usual, call your Primary Care Doctor or go to the ER. Patient Language: Setswana Prescriptions: New benzonatate 100 mg capsule 100 mg PO BID PRN (Reason: cough) Qty: 14 0RF prednisone 20 mg tablet 40 mg PO DAILY 5 Days Qty: 10 0RF doxycycline monohydrate 100 mg tablet 100 mg PO BID 7 Days Qty: 14 0RF No Action prednisone 20 mg tablet 40 mg PO DAILY 5 Days Qty: 10 0RF amlodipine 5 mg tablet 5 mg PO DAILY tizanidine 2 mg tablet 2 mg PO TID budesonide-formoterol [Symbicort] 160-4.5 mcg/actuation HFA aerosol inhaler 2 puff INHALATION Q12H Qty: 10.2 5RF pregabalin [Lyrica] 25 mg capsule 25 mg PO BID esomeprazole magnesium [Nexium] 40 mg capsule,delayed release(DR/EC) 40 mg PO DAILY Qty: 90 2RF venlafaxine 75 mg capsule,extended release 24hr 75 mg PO DAILY Qty: 90 2RF pravastatin 40 mg tablet 40 mg PO DAILY Qty: 90 2RF carvedilol 12.5 mg tablet 12.5 mg PO Q12H Qty: 180 0RF Rx Instructions: must administer with a meal/food lisinopril 20 mg tablet 20 mg PO DAILY Qty: 90 0RF Follow-up/Referrals: Diana,MD Yee [Primary Care Provider] - 3 Days Time of Disposition: 12:13
[2025-01-21 11:32] VITALS: BP 131/72; PULSE 76; RESP 16; TEMP 36.1; O2SAT 97
== END 2025-01-21 12:20 | disposition home or self-care (01) ==
PROVIDERS: Emergency Provider Nurse Practitioner Family; PCP Internal Medicine
DX: J20.9 Acute bronchitis, unspecified (principal); F17.210 Nicotine dependence, cigarettes, uncomplicated; M17.0 Bilateral primary osteoarthritis of knee; M79.7 Fibromyalgia; K21.9 Gastro-esophageal reflux disease without esophagitis; I10 Essential (primary) hypertension; J44.9 Chronic obstructive pulmonary disease, unspecified; E78.5 Hyperlipidemia, unspecified; M48.00 Spinal stenosis, site unspecified; F41.9 Anxiety disorder, unspecified; F32.A Depression, unspecified
CPT/HCPCS: 99213; G0463